=== PATIENT | female | born 1965 | race Caucasian/White ===

== ENCOUNTER 2021-03-18 00:10 | Emergency (ER) | payer OTHER ==
[~2021-03-18 00:10] MED LIST: NAPROXEN500 MG PO
[2021-03-18 01:05] LABS: BASOPHIL 0.3 % (0-2); EOSINOPHIL 1.6 % (0-5); HCT 38.1 % (37.0-47.0); HGB 12.6 g/dl (12.5-16.0); LYMPHOCYTE 19.2 % (15-48); MCH 26.5 pg (25.0-31.0); MCHC 33.1 g/dL (32.0-36.0); MCV 80.2 fL (78.0-100.0); MONOCYTE 6.4 % (0-12); MPV 9.8 fL (6.0-9.5); NEUTROPHIL 72.2 % (41-80); NRBC 0; PLT 319 K/uL (150-400); RBC 4.75 M/uL (4.20-5.40); RDW 14.1 % (11.5-14.0); WBC 8.7 K/uL (4.0-10.5)
[2021-03-18 01:27] LABS: BUN/CREAT RATIO (CALC) 10.7 RATIO; CREATININE 1.03 mg/dL (0.51-0.95); POTASSIUM 2.9 mmol/L (3.5-5.1)
[2021-03-18 02:00] LABS: CORONAVIRUS 2019 SARS-COV-2 NEGATIVE (NEGATIVE); INFLUENZA A NAA NEGATIVE (NEGATIVE)
== END 2021-03-18 03:37 | disposition home or self-care (01) ==
LOC: FER 00:10
PROVIDERS: Emergency Medicine Emergency Medical Services
DX: I95.1 Orthostatic hypotension (principal); E87.6 Hypokalemia; I10 Essential (primary) hypertension; Z88.0 Allergy status to penicillin; Z88.2 Allergy status to sulfonamides; Z88.6 Allergy status to analgesic agent; Z79.899 Other long term (current) drug therapy; Z20.822 Contact with and (suspected) exposure to COVID-19
CPT/HCPCS: 36415; 71045; 80048; 82550; 83605; 84484; 85025; 85379; 93005; J7030; U0002